=== PATIENT | male | born 1960 | race Caucasian/White ===

== ENCOUNTER 2023-12-05 13:28 | Emergency (ER) | payer OTHER ==
[~2023-12-05] VITALS: Ht 177.8 cm; Wt 102.3 kg
[2023-12-05 13:38] VITALS: TEMP 98.4
[2023-12-05] MEDS ORDERED: ANUSOL-HC2.5% RC (14:50)
[2023-12-05 15:14] VITALS: BP 139/84; PULSE 70
== END 2023-12-05 15:15 | disposition home or self-care (01) ==
LOC: COL.ER 13:28
DX: K64.5 Perianal venous thrombosis (principal)